=== PATIENT | female | born 1950 | race Caucasian/White ===

== ENCOUNTER → 2019-03-09 09:43 | Outpatient (CLI) | payer MEDICARE ==
--- NOTE | 2019-03-19 16:41 | ST ---
PATIENT:FELICIA FLORES MEDICAL RECORD: [id number] SEX: F LOCATION:[facility] ORDER #: ADMISSION DATE: 03/09/19 AGE OF PATIENT: 68 REFERRING PHYSICIAN: INTERPRETING PHYSICIAN: ISHAN RUEDA MD DATE OF SERVICE: 03/09/2019 Exercise Stress Test INDICATIONS: Abnormal cardiac CT. She was exercised on a standard Wilber protocol for 6 minutes achieving greater than 85% of max target heart rate response with no EKG changes, no dysrhythmias, no anginal chest discomfort. OVERALL IMPRESSION: Negative for inducible ischemia at adequate cardiac workload. 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
== END | disposition home or self-care (01) ==
LOC: D.HCCARDIO 09:43
PROVIDERS: ATTEND Internal Medicine Interventional Cardiology
DX: R93.1 Abnormal findings on diagnostic imaging of heart and coronary circulation (principal)

== ENCOUNTER 2019-09-09 09:00 | Outpatient (CLI) | payer MEDICARE | END 2019-09-09 10:00 | disposition home or self-care (01) | LOC: D.MAMMO 09:00 | PROVIDERS: ATTEND Family Medicine | DX: Z12.31 Encounter for screening mammogram for malignant neoplasm of breast (principal) ==